=== PATIENT | female | born 1970 | race Caucasian/White ===

== ENCOUNTER 2018-02-12 17:40 | Emergency (ER) | payer SELFPAY ==
[~2018-02-12] VITALS: Ht 170.2 cm; Wt 96.0 kg
[2018-02-12 17:48] VITALS: BP 104/67; PULSE 92; RESP 16; TEMP 97.8; O2SAT 98
[2018-02-12] MEDS ORDERED: ORPHENADRINE INJ 60 MG/2 ML AMP IM ONE (19:15)
[2018-02-12] MEDS ORDERED: KETOROLAC TROMETHAMINE 60 MG/2 ML (IM) VIAL IM ONE (19:15)
--- NOTE | 2018-02-12 19:39 | PD ---
HPI Chief Complaint: Pain: Acute or Chronic Time Seen by Provider: 19:09 Travel History International Travel<30 days: No Contact w/Intl Traveler<30days: No Traveled to known affect area: No History of Present Illness HPI 48-year-old female that presents to the ED for evaluation of right-sided neck pain and upper back pain as well as shoulder pain. Per patient she's had this for some time but it has worsened for the past couple days. Per patient she hasn't done anything to it. She's been doing [id number] remedies with some relief but the pain continues which is what concerned her. Per patient the pain gets worse when she lifts her arm. She denies any trauma. No overuse. Per patient she works at [employer] and is agreeable. She denies any IV drug abuse or any other medical issues. No surgeries or injuries to her neck. Has no allergies to medication. Has not seen anybody for this. Denies any weakness, numbness, tingling. Pain per patient is 8 out of 10. No urinary or bowel movement issues. No trauma or injury. PFSH Past Medical History Medical History: Denies Significant Hx Hx Anticoagulant Therapy: No Diminished Hearing: No Tetanus Vaccination: < 5 Years Influenza Vaccination: No ?: Not Past Surgical History Other Surgery: Yes (skull fracture with plates) Social History Alcohol Use: No Tobacco Use: Yes (1/2) Substance Use: No Allergies-Medications (Allergen,Severity, Reaction): Coded Allergies: No Known Allergies (Unverified , 02/12/18) Reported Meds & Prescriptions Reported Meds & Active Scripts Active No Active Prescriptions or Reported Medications Review of Systems Except as stated in HPI: all other systems reviewed are Neg Physical Exam Narrative GENERAL: SKIN: Warm and dry. HEAD: Atraumatic. Normocephalic. EYES: Pupils equal and round. No scleral icterus. No injection or drainage. ENT: No nasal bleeding or discharge. Mucous membranes pink and moist. Tongue is midline. No uvula deviation. NECK: Trachea midline. No JVD. CARDIOVASCULAR: Regular rate and rhythm. No murmurs, S3, S4. RESPIRATORY: No accessory muscle use. Clear to auscultation. Breath sounds equal bilaterally. GASTROINTESTINAL: Abdomen soft, non-tender, nondistended. Hepatic and splenic margins not palpable. MUSCULOSKELETAL: Extremities without clubbing, cyanosis, or edema. No obvious deformities. Full range of motion of the upper and lower extremities bilaterally. 2+ pulses bilaterally. Patient has reproducible pain on the musculature of the right upper back as well as with abduction of the right shoulder. Patient can go tonight agrees with minimal discomfort. After 9 patient has pain to producible the musculature of the right upper thoracic area. No obvious cervical, thoracic, lumbar spine tenderness to palpation. Some soft tissue swelling noted. No obvious sign of erythema or mass. NEUROLOGICAL: Awake and alert. No obvious cranial nerve deficits. Motor grossly within normal limits. Five out of 5 muscle strength in the arms and legs. Normal speech. PSYCHIATRIC: Appropriate mood and affect; insight and judgment normal. Data Data Last Documented VS Vital Signs Date Time Temp Pulse Resp B/P (MAP) Pulse Ox O2 Delivery O2 Flow Rate FiO2 02/12/18 17:48 97.8 92 16 104/67 (79) [address] Cerv Spine W/O Contrast (02/12/18 ) Ketorolac Inj (Toradol Inj) (02/12/18 19:15) Orphenadrine Inj (Norflex Inj) (02/12/18 19:15) MDM Medical Decision Making Medical Screen Exam Complete: Yes Emergency Medical Condition: Yes Medical Record Reviewed: Yes Interpretation(s) CT cervical spine showed chronic changes but no sign of acute disease. Differential Diagnosis Fracture versus sprain versus strain versus bruise versus contusion versus whiplash versus muscle spasm versus herniated disc Narrative Course 48-year-old female that presents to the ED for evaluation of back pain. Patient was properly examined and was found to have signs and symptoms consistent appears to be muscle scale back pain. Imaging was ordered. Imaging was negative for acute disease. Patient was pressure. This time patient was given Toradol and Norflex for pain with some relief. She will be given prescriptions for similar as well as Lortab. Patient was told to follow closely with PCP. See ED worsening symptoms. Ice or warm compresses. Given note for work. Diagnosis Primary Impression: Cervical strain, acute Qualified Codes: S16.1XXA - Strain of muscle, fascia and tendon at neck level , initial encounter Patient Instructions: General Instructions Additional Instructions: Take medications as prescribed. Follow-up with PCP. See ED for any worsening symptoms. Do not drink or drive while taking pain medication. Apply ice or heat as needed for pain Med/Other Pt SpecificInfo: Prescription(s) given Scripts No Active Prescriptions or Reported Meds Disposition: 01 DISCHARGE HOME Condition: Jonatan Oswald Feb 12, 2018 19:39
[2018-02-12] MEDS ORDERED: ROBA500T PO (20:21)
[2018-02-12] MEDS ORDERED: DICL75TA PO (20:21)
[2018-02-12] MEDS ORDERED: HYDR-3516 PO (20:21)
--- NOTE | 2018-02-12 20:33 | RADRPT ---
EXAM DATE/TIME: 02/12/2018 19:49 [facility] COMPARISON: No previous studies available for comparison. INDICATIONS : Right neck and shoulder pain. RADIATION DOSE: 26.37 CTDIvol (mGy) MEDICAL HISTORY : None SURGICAL HISTORY : Craniotomy. ENCOUNTER: Initial ACUITY: 4 - 6 days PAIN SCALE: 7/10 LOCATION: Right neck TECHNIQUE: Volumetric scanning of the cervical spine was performed. Multiplanar reconstructions in the sagittal, coronal and oblique axial planes were performed. Using automated exposure control and adjustment o f the mA and/or kV according to patient size, radiation dose was kept as low as reasonably achievable to obtain optimal diagnostic quality images. DICOM format image data is available electronically f or review and comparison. FINDINGS: VERTEBRAE: Normal vertebral body height. ALIGNMENT: No evidence of subluxation. C2-C3: The bony spinal canal is normal in size. No evidence of disc bulge or herniation. The neural forami na are bilaterally patent. C3-C4: The bony spinal canal is normal in size. No evidence of disc bulge or herniation. The neural forami na are bilaterally patent. C4-C5: The bony spinal canal is normal in size. No evidence of disc bulge or herniation. The neural forami na are bilaterally patent. C5-C6: The bony spinal canal is normal in size. No evidence of disc bulge or herniation. The neural forami na are bilaterally patent. C6-C7: The bony spinal canal is normal in size. No evidence of disc bulge or herniation. The neural forami na are bilaterally patent. C7-T1: The bony spinal canal is normal in size. No evidence of disc bulge or herniation. The neural forami na are bilaterally patent. CONCLUSION: Normal examination for a patient of this age. Tae Cervantes MD on February 12, 2018 at 20:27 Board Certified Radiologist. This report was verified electronically.
== END 2018-02-12 20:43 | disposition home or self-care (01) ==
LOC: PHED 17:40 → PHEFT 20:43
DX: S16.1XXA Strain of muscle, fascia and tendon at neck level, initial encounter (principal); X58.XXXA Exposure to other specified factors, initial encounter; Z72.0 Tobacco use
CPT/HCPCS: 72125; 96372; 99285; J1885; J2360